=== PATIENT | male | born 1935 | race Hispanic/Latino ===

== ENCOUNTER → 2017-06-04 | Outpatient (CLI) | payer MEDICARE, OTHER ==
[~2017-06-04] MED LIST: AEC81 PO; ESCI10TA54 PO; HYDR25TA PO; IBUP-2353 PO; METF500T6 PO; METO25TA6 PO; RAMI2.5C15 PO
== END | disposition home or self-care (01) ==
LOC: RAH 10:57
PROVIDERS: ATTEND Family Medicine
DX: N18.3 Chronic kidney disease, stage 3 (moderate) (principal)
CPT/HCPCS: 76770